=== PATIENT | male | born 1995 | race Caucasian/White ===

== ENCOUNTER 2019-11-27 19:24 | Emergency (ER) | payer OTHER ==
[~2019-11-27] VITALS: Ht 177.8 cm; Wt 83.9 kg
--- NOTE | 2019-11-27 21:29 | NUR ---
Cough, congestion, fever, chills, and head pain x 5 days
--- NOTE | 2019-11-27 21:35 | NUR ---
YUMIKO BAUTISTA PAC AT THE BED SIDE
[2019-11-27] MEDS ORDERED: IV NS 0.9% 1,000 ML BAG IV ONE (22:00)
[2019-11-27] MEDS ORDERED: ACETAMINOPHEN 325 MG TABLET PO ONE (22:00)
[2019-11-27] MEDS ORDERED: KETOROLAC TROMETHAMINE INJ 30 MG/ML VIAL IV ONE (22:00)
[2019-11-27] MEDS ORDERED: ACETAMINOPHEN 325 MG TABLET ONE (22:06)
[2019-11-27] MEDS ORDERED: KETOROLAC TROMETHAMINE INJ 30 MG/ML VIAL ONE (22:06)
--- NOTE | 2019-11-27 23:40 | NUR ---
IV removed. Catheter intact and site benign. Pressure and 4x4 applied to site. No bleeding noted.Patient discharged to home in stable condition. Rx and Written and verbal after care instructions given. Patient verbalizes understanding of instruction.
[2019-11-27 23:43] VITALS: BP 124/82
== END 2019-11-27 23:43 | disposition home or self-care (01) ==
LOC: ER 19:30
DX: J06.9 Acute upper respiratory infection, unspecified (principal); F17.290 Nicotine dependence, other tobacco product, uncomplicated
CPT/HCPCS: 71045; 87804 ×2; 96374; 99284; 99406; J1885; J7030

== ENCOUNTER 2020-04-27 13:05 | Emergency (ER) | payer OTHER ==
[~2020-04-27] VITALS: Ht 170.2 cm; Wt 77.1 kg
[2020-04-27 13:10] VITALS: BP 178/76
--- NOTE | 2020-04-27 13:20 | NUR ---
FISH STRAIGHTENER AT BEDSIDE FOR XRAY.
--- NOTE | 2020-04-27 13:45 | NUR ---
SHOULDER IMMOBILIZER APPLIED.
--- NOTE | 2020-04-27 13:51 | NUR ---
Patient discharged to home in stable condition. Written and verbal after care instructions given. Patient verbalizes understanding of instruction.
== END 2020-04-27 13:52 | disposition home or self-care (01) ==
LOC: ER 13:11
DX: S43.101A Unspecified dislocation of right acromioclavicular joint, initial encounter (principal); X58.XXXA Exposure to other specified factors, initial encounter; Y93.39 Activity, other involving climbing, rappelling and jumping off; Y92.89 Other specified places as the place of occurrence of the external cause; Y99.8 Other external cause status
CPT/HCPCS: 73030-TC

== ENCOUNTER 2020-05-13 09:27 | Outpatient (CLI) | payer OTHER | END 2020-05-13 23:59 | disposition home or self-care (01) | LOC: LAB 09:27 | PROVIDERS: ATTEND Student in an Organized Health Care Education/Training Program | DX: Z01.812 Encounter for preprocedural laboratory examination (principal); Z11.59 Encounter for screening for other viral diseases | CPT/HCPCS: 87426; C9803 ==

== ENCOUNTER 2020-05-16 11:00 | Inpatient (IN) | payer OTHER ==
[2020-05-16] VITALS (8 sets, daily range): BP systolic 103–114; BP diastolic 55–74
[~2020-05-16] VITALS: Ht 170.2 cm; Wt 72.6 kg
--- NOTE | 2020-05-16 12:00 | NUR ---
MS RN NOTES RECEIVED PATIENT FROM ADMITTING. PATIENT AMBULATORY, ALERT, ORIENTED X4. PATIENT ORIENTED TO ROOM. STARTED PERIPHERAL IV ON LEFT FOREARM WITH GOOD BLOOD RETURN. CONSENT OBTAINED. CHECK LIST COMPLETED. PATIENT READY FOR SURGERY. WILL CONTINUE TO MONITOR.
[2020-05-16] MEDS ORDERED: FLUO20CA42 PO (12:02)
[2020-05-16] MEDS ORDERED: AMPH20CA3 PO (12:02)
[2020-05-16] MEDS ORDERED: BACITRACIN 50000 UNITS/VIAL ONE (13:09)
[2020-05-16] MEDS ORDERED: BUPIVACAINE 0.5 % PF 150 MG/30 ML VIAL ONE (13:09)
[2020-05-16] MEDS ORDERED: FENTANYL PF 250MCG/5ML AMPUL ONE (13:18)
[2020-05-16] MEDS ORDERED: FLUMAZENIL 0.5 MG VIAL ONE (13:18)
[2020-05-16] MEDS ORDERED: MIDAZOLAM HCL 2 MG/2ML VIAL ONE (13:18)
[2020-05-16] MEDS ORDERED: SCOPOLAMINE HBR 1 EA PATCH.TD72 TD ONE (13:19)
[2020-05-16] MEDS ORDERED: IV NS 0.9% 1,000 ML IV PRN (16:59)
[2020-05-16] MEDS ORDERED: DOCUSATE SODIUM 100 MG CAPSULE PO PRN (17:00)
[2020-05-16] MEDS ORDERED: BISACODYL SUPP (10 MG) 10 MG/SUPP.RECT SUPP.RECT RC PRN (17:00)
[2020-05-16] MEDS ORDERED: SENNOSIDES 8.6 MG TABLET PO PRN (17:00)
[2020-05-16] MEDS ORDERED: ONDANSETRON HCL/PF 4 MG/2 ML VIAL IVP PRN (17:00)
[2020-05-16] MEDS ORDERED: MORPHINE SULFATE INJ 2 MG/ML DISP.SYRIN IV PRN (17:00)
[2020-05-16] MEDS ORDERED: HEMOSTATIC MATRIX 8 ML 1 EACH PAD MC ONE (17:49)
--- NOTE | 2020-05-16 18:30 | NUR ---
MS RN NOTES PATIENT IN BED RESTING NO SOB OR ACUTE DISTRESS NOTED. PATIENT ALERT, ORIENTED X3. PATIENT IS RESTING IN BED. STABLE, WILL ENDORSE CARE TO PM SHIFT.
--- NOTE | 2020-05-16 19:15 | NUR ---
MS RN OPENING NOTES: RECEIVED PATIENT IN BED, AWAKE, A/O X4. NO SOB NOTED. NO COMPLAIN OF PAIN. CALL LIGHT WITHIN REACH. BED IN LOWEST AND LOCKED POSITION. INCENTIVE SPIROMETER INSTRUCTED, RETURN DEMO DONE, PATIENT DID IT GOOD UP TO 3000. WITH RIGHT SHOULDER DRESSING CLEAN DRY AND INTACT, NO BLEEDING NOTED, WITH ICE PACK ON THE RIGHT SHOULDER AT ALL TIMES. WITH SLING ON THE RIGHT ARM. WITH GOOD CMS ON THE RIGHT EXTREMITY, WITH GOOD COLOR FINGERNAILS, WITH GOOD SENSATIONS, WARM TO TOUCH. URINAL PROVIDED. JUST HAD DINNER. NWB ON THE RIGHT ARM, INSTRUCTED,PATIENT VERBALIZED UNDERSTANDING. WITH SCD'S ON BOTH LEGS ON. HOB ELEVATED.
[2020-05-17] VITALS: BP 98/47
--- NOTE | 2020-05-17 00:20 | NUR ---
PATIENT VOIDED THRU GFYTMD=[id number], LIGHT KRISTINA COLORED URINE.
[2020-05-17] MEDS: HYDROCODONE/APAP 5/325MG 1 EACH TABLET PO PRN ×2 (01:14→10:48)
[2020-05-17 01:17] VITALS: BP 102/60
[2020-05-17 04:11] VITALS: BP 111/65
--- NOTE | 2020-05-17 06:23 | NUR ---
MS RN CLOSING NOTES: PATIENT IN BED, AWAKE, A/OX4. NO SOB NOTED. NO COMPLAIN OF PAIN AT THIS TIME. CALL LIGHT WITHIN REACH, BED IN LOWEST AND LOCKED POSITION. WITH RIGHT ARM SLING AT ALL TIMES. NWB ON THE RIGHT ARM. VOIDING GOOD. WITH GOOD CMS ON THE RIGHT EXTREMITY. NO BLEEDING NOTED. HOB ELEVATED AT ALL TIMES. WITH ICE PACK ON THE INCISION SITE. VITALS STABLE. AFEBRILE.
--- NOTE | 2020-05-17 07:31 | NUR ---
RN NOTES RECEIVED PATIENT IN BED RESTING COMFORTABLY IN MODERATE HIGH BACK REST, A/OX4. NO SIGNS OF DISTRESS NOTED AT THIS TIME. SAFETY MEASURES IN PLACE, CALL LIGHT WITHIN REACH, BED IN LOWEST AND LOCKED POSITION. WITH RIGHT ARM SLING AT ALL TIMES. NWB ON THE RIGHT ARM. NO BLEEDING NOTED. WILL CONTINUE TO MONITOR.
[2020-05-17 07:52] LABS: EOSINOPHILS % (AUTO) 0.1 % (0.0-6.0); HEMATOCRIT 41 % (39-51); HEMOGLOBIN 13.4 g/dL (13.5-17.5); LYMPHOCYTES % (AUTO) 12.4 % (20.0-44.0); MEAN CORPUSCULAR HGB CONC 33 g/dl (31.0-36.0); MEAN CORPUSCULAR VOLUME 87 fL (80-96); MONOCYTES # (AUTO) 1.1 /CMM (0.1-1.30); MONOCYTES % (AUTO) 6.9 % (2.0-12.0); NEUTROPHILS # (AUTO) 13.3 /CMM (1.8-8.9); NEUTROPHILS % (AUTO) 80.6 % (43.0-81.0); PLATELET COUNT (AUTO) 235 /CMM (150-450); RED BLOOD CELL COUNT(AUTO) 4.67 MIL/uL (4.5-6.0); WHITE BLOOD COUNT (AUTO) 16.5 K/uL (4.3-11.0)
[2020-05-17 08:00] VITALS: BP 115/66
[2020-05-17 08:06] LABS: ALBUMIN 3.4 g/dL (3.4-5.0); BILIRUBIN,TOTAL 0.6 mg/dL (0.2-1.0); CALCIUM, SERUM 8.7 mg/dL (8.5-10.1); CREATININE 0.8 mg/dL (0.6-1.3); MAGNESIUM 1.9 mg/dL (1.8-2.4); POTASSIUM 3.7 mmol/L (3.5-5.1); TOTAL PROTEIN, SERUM 6.8 g/dL (6.4-8.2)
[2020-05-17 08:11] LABS: THYROID STIMULATING HORMONE 0.448 uIU/mL (0.358-3.74)
[2020-05-17] MEDS ORDERED: FLUOXETINE HCL 20 MG CAPSULE PO SCH (09:00)
[2020-05-17] MEDS ORDERED: DOCU-270 PO (13:07)
--- NOTE | 2020-05-17 13:47 | NUR ---
KNOCKER OFF NOTES PATIENT DISCHARGED IN STABLE CONDITION. A/O X4. ABLE TO MAKE NEEDS KNOWN. V/S TAKEN, STABLE AND RECORDED. IV ACCESS REMOVED AND APPLIED PRESSURE DRESSINGS. REFUSED SKIN ASSESSMENT AND PICTURES. NAME ARM BAND REMOVED. ALL BELONGINGS CHECKED AND SIGNED. HEALTH TEACHINGS/DISCHARGED INSTRUCTIONS GIVEN AND VERBALIZED UNDERSTANDING. PATIENT LEFT UNIT VIA WHEELCHAIR IN NO ACUTE SIGNS OF DISTRESS. PATIENT ASSISTED TO THE LOBBY AND PICKED UP BY GIRLFRIEND. CHARGE NURSE AWARE OF DISCHARGED.
== END 2020-05-17 13:45 | disposition home or self-care (01) | DRG 508 ==
LOC: DS 11:00 → MED 18:13
PROVIDERS: ADMIT Registered Nurse; ATTEND Registered Nurse
PROC: 0PB90ZZ Excision of Right Clavicle, Open Approach (ICD-10-PCS; principal; 2020-05-16)
PROC: 0RUG0KZ Supplement Right Acromioclavicular Joint with Nonautologous Tissue Substitute, Open Approach (ICD-10-PCS; principal; 2020-05-16)
DX: S43.101A Unspecified dislocation of right acromioclavicular joint, initial encounter (principal); F90.9 Attention-deficit hyperactivity disorder, unspecified type; F41.9 Anxiety disorder, unspecified; Z87.891 Personal history of nicotine dependence; D72.829 Elevated white blood cell count, unspecified; W19.XXXA Unspecified fall, initial encounter; Y92.9 Unspecified place or not applicable
CPT/HCPCS: 36415; 73030-TC; 80053-TC; 80061-TC; 83735-TC; 84100-TC; 84443-TC; 85025-TC; 87081-TC; 97116-TC; G0378; J0690; J1100; J1885; J2250; J2405; J2704; J3010; J3490; J7030